=== PATIENT | female | born 1960 | race Caucasian/White ===

== ENCOUNTER → 2021-07-06 09:49 | Outpatient (CLI) | payer OTHER, SELFPAY ==
[2021-07-06 12:24] LABS: Hematocrit 44.4 % (37-47); Hemoglobin 14.7 g/dL (12.0-15.0); Mean Corp Hgb Conc 33.1 g/dL (32-36); Mean Corpuscular Hgb 31.2 pg (27.0-32.0); Mean Corpuscular Volume 94.3 fL (81-99); Mean Platelet Vol. 10.3 fl (6.2-12.0); Platelet Count 269 K/mm3 (150-450); RBC Distribution Width CV 13.1 % (11.6-14.6); RBC Distribution Width SD 45.7 fl (35.1-43.9); Red Blood Count 4.71 M/mm3 (4.2-5.4); White Blood Count 5.6 K/mm3 (4.4-11.0)
[2021-07-06 12:43] LABS: ALB/GLOB Ratio 1.1 RATIO (0.9-2.4); AST(SGOT) 14 U/L (15-37); Alanine Aminotransfer ALT/SGPT 21 U/L (13-56); Albumin, Serum 3.8 g/dL (3.2-5.0); Alkaline Phosphatase 81 U/L (45-117); Anion Gap 8 (5-15); BUN 13 mg/dL (7-18); BUN/Creat Ratio 21.4 RATIO (10-20); Calcium,Total 9.1 mg/dL (8.5-10.1); Chloride 104 mmol/L (98-107); Cholesterol 247 mg/dL (200); Creatinine, Serum 0.61 mg/dL (0.55-1.02); EST Glomerular Filtration Rate 106 mL/min (>60); Est Glom Filt Rate - Afr Amer 128 mL/min (>60); Globulin 3.4 g/dL (2.2-4.2); Glucose 91 mg/dL (74-106); High Density Lipoprotein 57 mg/dL; Potassium 3.8 mmol/L (3.5-5.1); Protein, Total 7.2 g/dL (6.4-8.2); Sodium Level 140 mmol/L (136-145); Triglycerides 180 mg/dL; Very Low Density Lipoprotein 36 mg/dL (5-40)
== END ==
PROVIDERS: PCP Family Medicine; Referring Provider Family Medicine; Visit Provider Family Medicine
DX: Z13.0 Encounter for screening for diseases of the blood and blood-forming organs and certain disorders involving the immune mechanism (principal); Z13.228 Encounter for screening for other metabolic disorders; Z13.220 Encounter for screening for lipoid disorders; Z20.822 Contact with and (suspected) exposure to COVID-19
CPT/HCPCS: 36415; 80053; 80061; 85027; 86769

== ENCOUNTER → 2021-07-13 12:44 | Outpatient (CLI) | payer OTHER, SELFPAY ==
--- NOTE | 2021-07-13 12:46 | BI_ITS ---
MAMMOGRAPHY - BILATERAL SCREENING REASON FOR EXAM: Female, 60 years old. Routine annual screening examination. PERTINENT HISTORY: Non-contributory. TECHNIQUE: Digital bilateral breast esvin (3D mammographic acquisition) in the CC and MLO projections. 2-D mediolateral oblique (MLO) and craniocaudad (CC) views of both breasts were obtained. CAD: Full Field Digital Mammography with Computer Added Detection was performed. COMPARISON: Comparison is made with prior outside examination dated 09/25/2019. FINDINGS: Breast Composition: There are scattered areas of fibroglandular density. There are no dominant masses or suspicious calcifications. No other significant abnormalities are identified. There has been no significant change since the prior study. BI/SCRN MAMM (CAD)W/ESVIN BILAT IMPRESSION: Stable bilateral screening mammogram. Yearly follow-up mammogram recommended. (A) ASSESSMENT CATEGORY: BIRADS Category 1: Negative. A letter regarding these results will be sent to the patient by the facility within 30 days. Approximately 10% of breast cancers are not detected by mammography. A normal mammogram should not delay biopsy of a clinically suspicious abnormality. [id number] Electronically Signed: Kem Wade MD at 14:32 EST , Service support ,
== END ==
PROVIDERS: PCP Family Medicine; Referring Provider Family Medicine; Visit Provider Family Medicine
DX: Z12.31 Encounter for screening mammogram for malignant neoplasm of breast (principal)
CPT/HCPCS: 77063; 77067

== ENCOUNTER → 2022-06-07 | Outpatient (CLI) | payer OTHER, SELFPAY ==
--- NOTE | 2022-06-07 12:09 | EKG12_ITS ---
Test Reason : PRE OP Blood Pressure : / mmHG Vent. Rate : 069 BPM Atrial Rate : 069 BPM P-R Int : 148 ms QRS Dur : 072 ms QT Int : 400 ms P-R-T Axes : 042 035 032 degrees QTc Int : 428 ms Normal sinus rhythm Normal ECG Confirmed by MILA AVILA, ALE ([id number]), legal editor JONATHAN GOFF ([id number]) on 06/08/2022 8:51:17 AM Referred By: Malika Sanchez Confirmed By:ALE ZARAGOZA MD
[2022-06-07 13:22] LABS: Absolute Lymphocyte Count 2.21 X10^3/uL (0.83-4.51); Absolute Neutrophil Count 4.3 X10^3/uL (2.0-7.7); Basophil# 0.04 X10^3/uL; Basophil% 0.6 % (0-1); Eosinophil# 0.11 X10^3/uL; Eosinophils% 1.5 % (0-5); Hematocrit 44.9 % (37-47); Hemoglobin 14.8 g/dL (12.0-15.0); Lymphocyte # 2.21 X10^3/ul (0.83-4.51); Lymphocyte % 30.6 % (19-41); Mean Corpuscular Hgb 31.2 pg (27.0-32.0); Mean Corpuscular Volume 94.5 fL (81-99); Mean Platelet Vol. 10.2 fl (6.2-12.0); Monocyte# 0.49 X10^3/uL; Monocyte% 6.8 % (0-10); NRBC Flagged by Analyzer 0 % (0-5); Neutrophil % 59.5 % (47-70); Platelet Count 297 K/mm3 (150-450); RBC Distribution Width CV 12.9 % (11.6-14.6); RBC Distribution Width SD 44.6 fl (35.1-43.9); Red Blood Count 4.75 M/mm3 (4.2-5.4); White Blood Count 7.2 K/mm3 (4.4-11.0)
[2022-06-07 14:33] LABS: Anion Gap 4 (5-15); BUN 14 mg/dL (7-18); BUN/Creat Ratio 13.6 RATIO (10-20); Calcium,Total 9.6 mg/dL (8.5-10.1); Chloride 104 mmol/L (98-107); Creatinine, Serum 1.03 mg/dL (0.55-1.02); EST Glomerular Filtration Rate 57 mL/min (>60); Est Glom Filt Rate - Afr Amer 70 mL/min (>60); Glucose 92 mg/dL (74-106); Potassium 4.1 mmol/L (3.5-5.1); Sodium Level 139 mmol/L (136-145)
== END | disposition home or self-care (01) ==
PROVIDERS: PCP Family Medicine; Referring Provider Physician Assistant Surgical; Visit Provider Physician Assistant Surgical
DX: Z01.818 Encounter for other preprocedural examination (principal); Z01.810 Encounter for preprocedural cardiovascular examination
CPT/HCPCS: 36415; 80048; 85025; 93005

== ENCOUNTER → 2022-06-16 | Outpatient (CLI) | payer OTHER, SELFPAY ==
--- NOTE | 2022-06-15 08:10 | LIP_PTH ---
PATIENT: DARREN THOMPSON LOC: [facility] U#:[id number] AGE/SX: 61/F ROOM: RE06/16/[address]: Dr. Robert Jurado DO : 1960 BED: DIS: 06/16/2022 SPEC #: [id number] RECD: 06/16/22 14:14 STATUS: BAKARI REMj #: [id number] NORIS: 06/15/22 08:[address]: Robert Jurado DEPT: SURGICAL PATHOLOGY RECD BY: America Hernandez ENTERED: 06/17/22 07:58 SP TYPE: LIPOMA OTHR DR: Dr. Lauren Sheehan, DO [facility] Tissues: Soft tissues, NOS Procedures: Surgery Specimen Level III HEADER OPERATION: Excision right dorsal wrist, lipoma PRE-OP DIAGNOSIS: Ganglion cyst, right wrist POST-OP DIAGNOSIS: Right dorsal wrist lipoma TISSUE SUBMITTED: Right dorsal wrist lipoma MICROSCOPIC DIAGNOSIS Right dorsal wrist lipoma, biopsy: Mature adipose tissue, consistent with lipoma. /ANUJA 06/18/22 MICROSCOPIC DESCRIPTION Slides are reviewed. GROSS DESCRIPTION Received in fixative is one container labeled with the patient's name and designated right dorsal wrist lipoma. The specimen consists of a piece of adipose tissue measuring 3 x 2.5 x 0.6 cm. Sections reveal yellow adipose cut surface with areas of hemorrhage, necrosis or cystic degeneration. Associate Vice President sections are submitted in one cassette. /ANUJA:eder 06/17/2022 TC:1 CPT:28160
== END | disposition home or self-care (01) ==
LOC: LABSPEC 15:34
PROVIDERS: PCP Family Medicine; Visit Provider Student in an Organized Health Care Education/Training Program
DX: M67.431 Ganglion, right wrist (principal)
CPT/HCPCS: 88304

== ENCOUNTER → 2022-10-07 | Outpatient (CLI) | payer OTHER, SELFPAY ==
--- NOTE | 2022-10-07 15:50 | BI_ITS ---
MAMMOGRAPHY - BILATERAL SCREENING REASON FOR EXAM: Female, 61 years old. Routine annual screening examination. PERTINENT HISTORY: Non-contributory. TECHNIQUE: Digital bilateral breast esvin (3D mammographic acquisition) in the CC and MLO projections. 2-D mediolateral oblique (MLO) and craniocaudad (CC) views of both breasts were obtained. CAD: Full Field Digital Mammography with Computer Added Detection was performed. COMPARISON: Comparison is made with prior study dated July 13, 2021 and August 27, 2010. FINDINGS: Breast Composition: There are scattered areas of fibroglandular density. There are no dominant masses or suspicious calcifications. Stable small benign-appearing bilateral axillary lymph nodes. No other significant abnormalities are identified. There has been no significant change since the prior study. BI/SCRN MAMM (CAD)W/ESVIN BILAT IMPRESSION: Stable bilateral screening mammogram. Yearly follow-up mammogram recommended. (A) ASSESSMENT CATEGORY: BIRADS Category 2: Benign. A letter regarding these results will be sent to the patient by the facility within 30 days. Approximately 10% of breast cancers are not detected by mammography. A normal mammogram should not delay biopsy of a clinically suspicious abnormality. [id number] Electronically Signed: Kem Wade MD at 7:56 EST ,
--- NOTE | 2022-10-07 15:55 | BD_ITS ---
STUDY: DUAL ENERGY X-RAY ABSORPTIOMETRY / DXA REASON FOR EXAM: Female, 61 years old. M810 TECHNIQUE: Bone Mineral Density (BMD) measurements of lumbar spine and bilateral hips were obtained. COMPARISON: None. FINDINGS: Lumbar Spine (L1-L4): g/cm2 (0.711) / T-score (-2.8) / Z-score (-1.1) Findings are suggestive of osteoporosis with a high fracture risk. Left Femur Total: g/cm2 (0.788) / T-score (-1.3) / Z-score (-0.1) Left Femoral Neck: g/cm2 (0.635) / T-score (-1.9) / Z-score (-0.5) Right Femur Total: g/cm2 (0.817) / T-score (-1.0) / Z-score (0.1) Right Femoral Neck: g/cm2 (0.669) / T-score (-1.6) / Z-score (-0.2) BD/Dexa Bone Density Study IMPRESSION: The patient is considered osteoporotic as outlined below according to World [employer] Organization (WHO) criteria with a high fracture risk. Reference Information: The T-score is the number of standard deviations above or below the standard which is normal for young adults at their peak bone mineral density. The World Health Organization (WHO) interprets the T-scores as follows: Above -1 Normal bone density Between -1 and -2.5 Osteopenia Equal to / or below -2.5 Osteoporosis As a practical clinical guideline, osteopenia may be graded as follows: Mild -1 through -1.5 Moderate -1.6 through -2.0 Severe -2.1 through -2.4 The Z-score is the number of standard deviations above or below age-matched controls. A Z-score of less than -1.5 would be considered abnormal. References: 1. NIH Osteoporosis and Related Bone Diseases www osteo.org 2. International Society for Clinical Densitometry www iscd.org 3. National Osteoporosis Foundation www nof.org Electronically Signed: Kem Wade MD at 14:19 EST ,
== END | disposition home or self-care (01) ==
PROVIDERS: PCP Family Medicine; Referring Provider Family Medicine; Visit Provider Family Medicine
DX: Z12.31 Encounter for screening mammogram for malignant neoplasm of breast (principal); M81.0 Age-related osteoporosis without current pathological fracture
CPT/HCPCS: 77063; 77067; 77080

== ENCOUNTER → 2023-09-09 | Outpatient (CLI) | payer OTHER, SELFPAY ==
[2023-09-09 14:34] LABS: Hematocrit 44.8 % (37-47); Hemoglobin 14.5 g/dL (12.0-15.0); Mean Corp Hgb Conc 32.4 g/dL (32-36); Mean Corpuscular Hgb 30.9 pg (27.0-32.0); Mean Corpuscular Volume 95.5 fL (81-99); Mean Platelet Vol. 10.2 fl (6.2-12.0); Platelet Count 276 K/mm3 (150-450); RBC Distribution Width CV 13.5 % (11.6-14.6); RBC Distribution Width SD 47.2 fl (35.1-43.9); Red Blood Count 4.69 M/mm3 (4.2-5.4); White Blood Count 7.3 K/mm3 (4.4-11.0)
[2023-09-09 15:33] LABS: ALB/GLOB Ratio 1.2 RATIO (0.9-2.4); AST(SGOT) 20 U/L (15-37); Alanine Aminotransfer ALT/SGPT 26 U/L (13-56); Alkaline Phosphatase 91 U/L (45-117); Anion Gap 6 (5-15); BUN 14 mg/dL (7-18); BUN/Creat Ratio 17.4 RATIO (10-20); Calcium,Total 9.4 mg/dL (8.5-10.1); Chloride 105 mmol/L (98-107); EST Glomerular Filtration Rate 76 mL/min (>60); Est Glom Filt Rate - Afr Amer 92 mL/min (>60); Globulin 3.3 g/dL (2.2-4.2); Glucose 97 mg/dL (74-106); Magnesium 2.5 mg/dL (1.6-2.6); Protein, Total 7.3 g/dL (6.4-8.2); Sodium Level 141 mmol/L (136-145)
== END | disposition home or self-care (01) ==
LOC: LAB 13:54
PROVIDERS: PCP Nurse Practitioner Family; Referring Provider Nurse Practitioner Family; Visit Provider Nurse Practitioner Family
DX: Z00.00 Encounter for general adult medical examination without abnormal findings (principal)
CPT/HCPCS: 36415; 80053; 83735; 85027

== ENCOUNTER → 2023-09-13 | Outpatient (CLI) | payer OTHER, SELFPAY ==
--- NOTE | 2023-09-13 13:04 | EKG12_ITS ---
Test Reason : ROUTINE Blood Pressure : / mmHG Vent. Rate : 066 BPM Atrial Rate : 066 BPM P-R Int : 154 ms QRS Dur : 074 ms QT Int : 410 ms P-R-T Axes : 047 040 032 degrees QTc Int : 429 ms Normal sinus rhythm Normal ECG Confirmed by Sang Shaw ([id number]), editor managing director JONATHAN GOFF ([id number]) on 09/14/2023 8:08:05 AM Referred By: Angeline Gar Confirmed By:Sang Shaw
--- OUTSIDE RECORDS SUMMARY | 2023-09-13 13:05 | XMS RPT_ITS | CCD ---
Author Name Unknown Address [address] [place] [address] Organization [facility] Care Team Providers Care Cessation Systems Outreach Specialist Name Role Phone Unavailable Primary Care Provider UnavailJOSE ANGEL Torres Referring Unavailable JOSE ANGEL LOTT DO Attending Unavailable JOSE ANGEL LOTT DO Primary Care Unavailable JOSE ANGEL LOTT DO Admitting Unavailable CHELSIE CORDOBA RESTAURANT HOST Admitting Unavailable CHELSIE CORDOBA NP Attending Unavailable CHELSIE CORDOBA RESTAURANT HOST Primary Care Unavailable Medications Current Medications Medication Drug Class(es) Dates Sig (Normalized) Sig (Original) doxycycline monohydrate 100 mg oral tablet (1 source) Tetracycline-clas s Drug Start: 08-15-2022 End: 08-20-2022 take 1 tablet by mouth twice daily doxycycline monohydrate 100 mg tablet Take 1 tablet by mouth twice daily for 5 days. 10 tablet 0 08/15/2022 08/20/2022 Active Completed/Discontinued Medications Medication Drug Class(es) Dates Sig (Normalized) Sig (Original) [id number] 200 actuat albuterol 0.09 mg/actuat metered dose inhaler (1 source) beta2-Adrenergic Agonist Start: 07-16-2023 take 2 puff(s) by inhalation every six hours as needed albuterol HFA (PROAIR HFA) 90 mcg/actuation inhaler Inhale 2 Puffs as instructed every 6 hours as needed. 1 Each 0 07/16/2023 Active Problems Active Problems Problem Classification Problem Date Documented Date Episodic/Chronic Disorders of lipid metabolism (3 sources) Hypercholesterolemia; Translations: [Pure hypercholesterolemia, unspecified] Onset: 06-01-2018 06-01-2018 Chronic Esophageal disorders (3 sources) Gastroesophageal reflux disease; Translations: [Gastro-esophageal reflux disease without esophagitis] Onset: 02-09-2017 02-09-2017 Chronic Osteoporosis (3 sources) Osteoporosis; Translations: [Age-related osteoporosis without current pathological fracture] Onset: 02-13-2018 02-13-2018 Chronic Other screening for suspected conditions (not mental disorders or infectious disease) (2 sources) Encounter for other screening for malignant neoplasm of breast; Translations: [Encounter for screening for osteoporosis] Onset: 09-01-2023 Episodic Other upper respiratory infections (1 source) Bacterial sinusitis; Translations: [Chronic sinusitis, unspecified] Chronic Other upper respiratory infections (2 sources) Acute upper respiratory infection; Translations: [Acute upper respiratory infection, unspecified] Episodic Viral infection (1 source) Disease caused by 2019-nCoV; Translations: [COVID-19] 07-16-2023 Episodic Past or Other Problems Problem Classification Problem Date Documented Da te Episodic/Chronic Other bone disease and musculoskeletal deformities (3 sources) Osteopenia; Translations: [Other specified disorders of bone density and structure, unspecified site] Onset: 01-27-2015 07-27-2021 Episodic Results Test Name Value Interpretation Reference Range Facil ity Vital Signs Date Time Vital Sign Value Performing Clinician Shiraz trotter 07-16-2023 11:53-0500 Body temperature 97.5 [degF] Larisa Athy PA-C Work Phone: [facility] 07-16-2023 11:53-0500 Body weight 73.94 kg Larisa Athy PA-C Work Phone: [facility] 07-16-2023 11:53-0500 Diastolic blood pressure 90 mm[Hg] Larisa Athy PA-C Work Phone: [facility] 07-16-2023 11:53-0500 Heart rate 67 /min Larisa Athy PA-C Work Phone: [facility] 07-16-2023 11:53-0500 Respiratory rate 16 /min Larisa Athy PA-C Work Phone: [facility] 07-16-2023 11:53-0500 SaO2% (BldA) [Mass fraction] 98 % Larisa Athy PA-C Work Phone: [facility] 07-16-2023 11:53-0500 Systolic blood pressure 136 mm[Hg] Larisa Kuo PA-C Work Phone: [facility] 08-15-2022 13:31-0500 Body temperature 97.9 [degF] [facility] TRAIN[facility].OPEN SOURCE DEVELOPER Work Phone: [facility] 08-15-2022 13:31-0500 Body weight 77.02 [facility] TRAIN[facility].OPEN SOURCE DEVELOPER Work Phone: [facility] 08-15-2022 13:31-0500 Diastolic blood pressure 88 mm[Hg] [facility]IN[facility].OPEN SOURCE DEVELOPER Work Phone: [facility] 08-15-2022 13:31-0500 Heart rate 78 /min [facility] TRAINING.OPEN SOURCE DEVELOPER Work Phone: [facility] 08-15-2022 13:31-0500 Respiratory rate 18 /min [facility] TRAINING.OPEN SOURCE DEVELOPER Work Phone: [facility] 08-15-2022 13:31-0500 SaO2% (BldA) [Mass fraction] 99 % [facility] RN TRAINING.OPEN SOURCE DEVELOPER Work Phone: [facility] 08-15-2022 13:31-0500 Systolic blood pressure 140 mm[Hg] [facility] TRAINING.OPEN SOURCE DEVELOPER Work Phone: [facility] 08-11-2022 11:43-0500 Body temperature 98.4 [degF] Krislyn Aberegg PA Work Phone: [facility] 08-11-2022 11:43-0500 Body weight 76.75 kg Krislyn Aberegg PA Work Phone: [facility] 08-11-2022 11:43-0500 Diastolic blood pressure 72 mm[Hg] Krislyn Aberegg PA Work Phone: [facility] 08-11-2022 11:43-0500 Heart rate 74 /min Krislyn Aberegg PA Work Phone: [facility] 01-11-2023 11:43-0500 Respiratory rate 16 /min Shama PETE Work Phone: [facility] 08-11-2022 11:43-0500 SaO2% (BldA) [Mass fraction] 96 % Shama PETE Work Phone: [facility] 08-11-2022 11:43-0500 Systolic blood pressure 128 mm[Hg] Shama PETE Work Phone: [facility] Encounters Encounter Date Encounter Type Care Provider Facility Start: 09-08-2023 ambulatory CHELSIE RESTAURANT HOST [facility] Start: 09-08-2023 Encounter for genera l adult medical examination without abnormal findings CHELSIE RESTAURANT HOST [facility] Start: 09-01-2023 End: 09-01-2023 ambulatory [facility] Start: 09-01-2023 End: 09-01-2023 Encounter for general adult medical examination without abnormal findings [facility] Start: 07-16-2023 End: 07-16-2023 ambulatory [facility] Facility:[facility] Start: 07-16-2023 End: 07-16-2023 Patient encounter procedure Larisa Kuo PA-C Work Phone: [facility] Procedures Date Procedure Procedure Detail Performing Clinician Start: 09-24-2022 Lipid 1996 panel - S presley or Plasma Larisa Kuo PA-C Work Phone: Start: 08-11-2022 STREP A MOLECULAR (POC) [facility] Provider Start: 09-25-2019 Mammography Shama PETE Work Phone: Plan of Treatment Date Care Activity Detail Author Start: 07-09-2030 Urine microalbumin profile [facility] Start: 09-24-2027 Lipid panel Lipid Screening [facility] Start: 09-24-2025 Diabetes Screening Diabetes Screening [facility] Start: 10-02-2024 LIPID SCREEN LIPID SCREEN [facility] Start: 04-01-2023 Influenza vaccination Influenza Vaccine (#1) [facility] Start: 08-01-2022 DEPRESSION ASSESSMENT DEPRESSION ASSESSMENT [facility] Start: 04-01-2022 Influenza vaccination INFLUENZA (#1) [facility] Start: 09-25-2020 Mammography MAMMOGRAM [facility] Start: 09-25-2020 Screening for malignant neoplasm of breast Mammogram Screening [facility] Start: 03-19-2020 DIABETES SCREEN DIABETES SCREEN [facility] Start: 05-29-2019 COLORECTAL CANCER SCREENING COLORECTAL CANCER SCREENING [facility] Start: 05-29-2019 FECAL OCCULT BLOOD FECAL OCCULT BLOOD [facility] Start: 05-29-2019 Screening for malignant neoplasm of colon [facility] Start: 2018 RSV Vaccine (1 - 1-dose 60+ series) RSV Vaccine (1 - 1-dose 60+ series) [facility] Start: 2008 SHINGRIX VACCINE (1 of 2) SHINGRIX VACCINE (1 of 2) [facility] Start: 12-31-2003 COLOGUARD (FIT-DNA) COLOGUARD (FIT-DNA) [facility] Start: 12-31-2003 Colonoscopy COLONOSCOPY [facility] Start: 12-31-[address] COLONOGRAPHY [facility] Start: 12-31-2003 Screening for malignant neoplasm of colon [facility] Start: 12-31-2003 SIGMOIDOSCOPY SIGMOIDOSCOPY [facility] Start: 1976 HEPATITIS C SCREENING HEPATITIS C SCREENING [facility] Start: 1976 Hepatitis C screening Hepatitis C Screening [facility] Start: 1976 HIV SCREENING HIV SCREENING [facility] Start: 1976 HIV screening HIV Screening [facility] Start: 07-01-1959 COVID-19 VACCINE (#1) COVID-19 VACCINE (#1) [facility] End: 08-14-2024 Radiologic exam chest 2 views XR CHEST 2V FRONTAL/LAT Radiology STAT COVID-19 1 Occurrences starting 07/16/2023 until 08/14/2024 [facility] Work Phone: Immunizations Immunization Date Immunization Notes Care Provider Galo moreno 07-09-2020 tetanus toxoid, redu chayo diphtheria toxoid, and acellular pertussis vaccine, adsorbed Krislyn Samantha PETE Work Phone: [facility] 08-04-2016 tetanus toxoid, redu chayo diphtheria toxoid, and acellular pertussis vaccine, adsorbed Krislyn Aberegg [place] Work Phone: [facility] Work Phone: Payers Date Payer Category Payer Unknown [id number] 2021 Unknown [id number] 1960 Unknown [id number] 1960 Unknown [id number] Social History Date Type Detail Facility Start: 08-11-2022 Tobacco smoking stat [facility] Ex-smoker [facility] Work Phone: End: 11-29-1993 History of tobacco use Current smoker [facility] Work Phone: End: 11-29-1993 History of tobacco use Cigarette Smoker [facility] Work Phone: Start: 07-07-2020 End: 08-11-2022 Cigarettes smoked current (pack per day) - Reported 1 [facility] Start: 08-11-2022 Tobacco use and exposure Smokeless tobacco non-user [facility] Work Phone: Start: 08-11-2022 End: 07-16-2023 Alcohol intake Current non-drinker of alcohol (finding) [facility] Start: 08-11-2022 Tobacco Comment Quit in November 1993 [facility] Start: 1960 Sex Assigned At Not on file C [facility] Start: 07-07-2020 End: 07-16-2023 Tobacco use panel [facility] Adult Depression Screening Assessment 0 [facility] Progress note 07-16-2023 Note Date & Type Note Facility 07-16-2023 Note HNO ID: [id number] Author: Larisa Kuo PA-C Service: ? Author Type: Physician Statistical Programmer Type: Progress Notes Filed: 07/16/2023 2:18 PM Note Text: This note was created using [employer]. Subjective Mariola Dc is a 62 year old female. HPI Patient presents with a chief complaint of cough shortness of breath nasal congestion. She was positive COVID last week. She had symptoms for about 12 days. She states she has had some dizziness off and on. No chest pain. She denies sinus pressure or pain. No vomiting but has had nausea. She has lost her smell and taste. No diarrhea. She has never had COVID previously and is not vaccinated. Review of Systems Constitutional: Positive for fatigue. Negative for fever. HENT: Positive for congestion and rhinorrhea. Negative for ear pain, sinus pressure and sinus pain. Respiratory: Positive for cough and shortness of breath. Negative for chest tightness and wheezing. Cardiovascular: Negative for chest pain. Gastrointestinal: Positive for nausea. Negative for abdominal pain and vomiting. Genitourinary: Negative. Musculoskeletal: Negative. Skin: Negative. Neurological: Positive for dizziness. All other systems reviewed and are negative. No past medical history on file. Current Outpatient Medications Medication Sig Dispense Refill ondansetron orally disintegrating (ZOFRAN ODT) 4 mg disintegrating tablet Take 1 tablet by mouth every 8 hours as needed. 12 tablet 0 albuterol HFA (PROAIR HFA) 90 mcg/actuation inhaler Inhale 2 Puffs as instructed every 6 hours as needed. 1 Each 0 loratadine (CLARITIN) 10 mg tablet Take 1 tablet by mouth once daily. (Patient not taking: Reported on 07/16/2023) 30 tablet 11 triamcinolone acetonide (KENALOG) 0.1 % cream Apply 1 application to affected area three times daily. Apply sparingly to area for rash/itching. (Patient not taking: Reported on 08/11/2022) 80 g 0 No current facility-administered medications for this visit. PAST SURGICAL HISTORY Procedure Laterality Date PAST SURGICAL HISTORY OF 2005 Partial Hysterctomy--cervix gone, but ovaries still there [place] ECTOPIC W/O SALPINGAND/OOPHORECTOMY 1993 Ectopic FAMILY HISTORY Problem Relation Age of Onset Cancer Father of Lung Cancer 1998; smoker Coronary Artery Disease Father [place] at age 56 None Mother Heart Maternal Grandmother CHF Lipids Maternal Grandmother Cancer Paternal Grandmother of Lung cancer; smoker Social History Tobacco Use Smoking status: Former Packs/day: 1.00 Years: 15.00 Additional pack years: 0.00 Total pack years: 15.00 Types: Cigarettes Quit date: 11/29/1993 Years since quittin.6 Smokeless tobacco: Never Tobacco comments: Quit in November 1993 Substance Use Topics Alcohol use: No Drug use: No Objective BP 136/90 Pulse 67 Temp 36.4 ?C (97.5 ?F) Resp 16 Wt 73.9 kg (163 lb) SpO2 98% BMI 26.71 kg/m? Physical Exam Vitals reviewed. Constitutional: Appearance: Normal appearance. HENT: Head: Normocephalic and atraumatic. Right Ear: Tympanic membrane, ear canal and external ear normal. Left Ear: Tympanic membrane, ear canal and external ear normal. Nose: Nose normal. Mouth/Throat: Mouth: Mucous membranes are moist. Pharynx: Oropharynx is clear. Cardiovascular: Rate and Rhythm: Normal rate and regular rhythm. Heart sounds: Normal heart sounds. Pulmonary: Effort: Pulmonary effort is normal. Breath sounds: Normal breath sounds. Musculoskeletal: Cervical back: Neck supple. Skin: General: Skin is warm and dry. Neurological: Mental Status: She is alert. Assessment and Plan ASSESSMENT/PLAN: 1. COVID-19 - ICD9: 079.89, ICD10: U07.1 Patient lungs are clear on exam, vital signs are stable. I did write Zofran for nausea and albuterol if she was feeling short of breath. X-ray is closed for the day today. Did order an x-ray for Tuesday. Discussed red flag symptoms to be seen in the ER. Discussed course of COVID and potential to develop symptoms even past the acute phase. Recommended follow-up with PCP if symptoms are not improving and instructed patient to go to the [facility] to establish with PCP in [place]. - XR CHEST 2V FRONTAL/LAT Larisa Kuo PA-C [facility] History of Present illness Narrative 07-16-2023 Larisa Kuo PA-C - 07/16/2023 1:29 PM EST Note Date & Type Note Facility 07-16-2023 History of Presen t illness Narrative This note was created using [employer]. Subjective Mariola Dc is a 62 year old female. HPI Patient presents with a chief complaint of cough shortness of breath nasal congestion. She was positive COVID last week. She had symptoms for about 12 days. She states she has had some dizziness off and on. No chest pain. She denies sinus pressure or pain. No vomiting but has had nausea. She has lost her smell and taste. No diarrhea. She has never had COVID previously and is not vaccinated. Review of Systems Constitutional: Positive for fatigue. Negative for fever. HENT: Positive for congestion and rhinorrhea. Negative for ear pain, sinus pressure and sinus pain. Respiratory: Positive for cough and shortness of breath. Negative for chest tightness and wheezing. Cardiovascular: Negative for chest pain. Gastrointestinal: Positive for nausea. Negative for abdominal pain and vomiting. Genitourinary: Negative. Musculoskeletal: Negative. Skin: Negative. Neurological: Positive for dizziness. All other systems reviewed and are negative. No past medical history on file. Current Outpatient Medications Medication Sig Dispense Refill ondansetron orally disintegrating (ZOFRAN ODT) 4 mg disintegrating tablet Take 1 tablet by mouth every 8 hours as needed. 12 tablet 0 albuterol HFA (PROAIR HFA) 90 mcg/actuation inhaler Inhale 2 Puffs as instructed every 6 hours as needed. 1 Each 0 loratadine (CLARITIN) 10 mg tablet Take 1 tablet by mouth once daily. (Patient not taking: Reported on 07/16/2023) 30 tablet 11 triamcinolone acetonide (KENALOG) 0.1 % cream Apply 1 application to affected area three times daily. Apply sparingly to area for rash/itching. (Patient not taking: Reported on 08/11/2022) 80 g 0 No current facility-administered medications for this visit. PAST SURGICAL HISTORY Procedure Laterality Date PAST SURGICAL HISTORY OF 2005 Partial Hysterctomy--cervix gone, but ovaries still there [place] ECTOPIC W/O SALPING&/OOPHORECTOMY 1993 Ectopic FAMILY HISTORY Problem Relation Age of Onset Cancer Father of Lung Cancer 1998; smoker Coronary Artery Disease Father [place] at age 56 None Mother Heart Maternal Grandmother CHF Lipids Maternal Grandmother Cancer Paternal Grandmother of Lung cancer; smoker Social History Tobacco Use Smoking status: Former Packs/day: 1.00 Years: 15.00 Additional pack years: 0.00 Total pack years: 15.00 Types: Cigarettes Quit date: 11/29/1993 Years since quittin.6 Smokeless tobacco: Never Tobacco comments: Quit in November 1993 Substance Use Topics Alcohol use: No Drug use: No Objective BP 136/90 Pulse 67 Temp 36.4 C (97.5 F) Resp 16 Wt 73.9 kg (163 lb) SpO2 98% BMI 26.71 kg/m Physical Exam Vitals reviewed. Constitutional: Appearance: Normal appearance. HENT: Head: Normocephalic and atraumatic. Right Ear: Tympanic membrane, ear canal and external ear normal. Left Ear: Tympanic membrane, ear canal and external ear normal. Nose: Nose normal. Mouth/Throat: Mouth: Mucous membranes are moist. Pharynx: Oropharynx is clear. Cardiovascular: Rate and Rhythm: Normal rate and regular rhythm. Heart sounds: Normal heart sounds. Pulmonary: Effort: Pulmonary effort is normal. Breath sounds: Normal breath sounds. Musculoskeletal: Cervical back: Neck supple. Skin: General: Skin is warm and dry. Neurological: Mental Status: She is alert. Assessment and Plan ASSESSMENT/PLAN: 1. COVID-19 - ICD9: 079.89, ICD10: U07.1 Patient lungs are clear on exam, vital signs are stable. I did write Zofran for nausea and albuterol if she was feeling short of breath. X-ray is closed for the day today. Did order an x-ray for Tuesday. Discussed red flag symptoms to be seen in the ER. Discussed course of COVID and potential to develop symptoms even past the acute phase. Recommended follow-up with PCP if symptoms are not improving and instructed patient to go to the [facility] to establish with PCP in [place]. - XR CHEST 2V FRONTAL/LAT Larisa Kuo PA-C documented in this encounter [facility] Progress note 08-15-2022 Note Date & Type Note Facility 08-15-2022 Note HNO ID: [id number] Author: Rajan Rosario APRN.OPEN SOURCE DEVELOPER Service: ? Author Type: Nurse Practitioner Type: Progress Notes Filed: 08/15/2022 2:03 PM Note Text: Subjective HPI Nontoxic-appearing female presents urgent care chief plaint sinus pressure headache. Duration of symptom 1 week. Associated symptoms sinus pressure and headache. Does have a transient sore throat. States was seen here on Tuesday. Diagnosed with viral URI. Did start Claritin and Flonase. Has not helped much. Presents today worsening sinus pressure. States that she has unilateral pressure over her left side. Denies any significant discomfort currently. No known sick contacts. Denies any fever body aches chills productive cough chest pain shortness of breath pleuritic pain hemoptysis nausea vomiting abdominal pain change in bowel or bladder habits. Past medical history prescription medication use and allergies reviewed. .Patient presents with: Head Congestion: ST, [place]RI[place], sinus drainage x1 week Seen 08/11 for same History reviewed. No pertinent past medical history. PAST SURGICAL HISTORY Procedure Laterality Date PAST SURGICAL HISTORY OF 2005 Partial Hysterctomy--cervix gone, but ovaries still there TX ECTOPIC W/O SALPINGAND/OOPHORECTOMY 1993 Ectopic ALLERGIES Patient has no known allergies. MEDICATIONS doxycycline monohydrate 100 mg tablet Take 1 tablet by mouth twice daily for 5 days. loratadine (CLARITIN) 10 mg tablet Take 1 tablet by mouth once daily. triamcinolone acetonide (KENALOG) 0.1 % cream Apply 1 application to affected area three times daily. Apply sparingly to area for rash/itching. (Patient not taking: Reported on 08/11/2022) FAMILY HISTORY Problem Relation Age of Onset Cancer Father of Lung Cancer 1998; smoker Coronary Artery Disease Father [place] at age 56 None Mother Heart Maternal Grandmother CHF Lipids Maternal Grandmother Cancer Paternal Grandmother of Lung cancer; smoker Social History Tobacco Use Smoking status: Former Packs/day: 1.00 Years: 15.00 Pack years: 15.00 Types: Cigarettes Quit date: 11/29/1993 Years since quittin.7 Smokeless tobacco: Never Tobacco comments: Quit in November 1993 Substance Use Topics Alcohol use: No Drug use: No BP 140/88 Pulse 78 Temp 36.6 ?C (97.9 ?F) Resp 18 Wt 77 kg (169 lb 12.8 oz) SpO2 99% BMI 27.83 kg/m? Review of Systems Constitutional: Negative for chills, fever and malaise/fatigue. HENT: Positive for congestion, sinus pain and sore throat. Negative for ear discharge and ear pain. Eyes: Negative for blurred vision, pain, discharge and redness. Respiratory: Negative for cough, hemoptysis, sputum production, shortness of breath, wheezing and stridor. Cardiovascular: Negative for chest pain. Gastrointestinal: Negative for abdominal pain, diarrhea, nausea and vomiting. Musculoskeletal: Negative for myalgias. Skin: Negative for itching and rash. Neurological: Positive for headaches. Negative for dizziness. Objective Physical Exam Constitutional: General: She is not in acute distress. Appearance: She is not diaphoretic. HENT: Head: Normocephalic. Jaw: No trismus or tenderness. Right Ear: Tympanic membrane, ear canal and external ear normal. Left Ear: Tympanic membrane, ear canal and external ear normal. Nose: Right Sinus: No maxillary sinus tenderness or frontal sinus tenderness. Left Sinus: Maxillary sinus tenderness and frontal sinus tenderness present. Mouth/Throat: Lips: [place]. Mouth: Mucous membranes are moist. Pharynx: Oropharynx is clear. Uvula midline. No pharyngeal swelling, oropharyngeal exudate, posterior oropharyngeal erythema or uvula swelling. Eyes: Conjunctiva/sclera: Conjunctivae normal. Pupils: Pupils are equal, round, and reactive to light. Cardiovascular: Rate and Rhythm: Normal rate and regular rhythm. Heart sounds: Normal heart sounds. Pulmonary: Effort: Pulmonary effort is normal. No tachypnea, accessory muscle usage or respiratory distress. Breath sounds: Normal breath sounds. No stridor. No wheezing, rhonchi or rales. Abdominal: Palpations: Abdomen is soft. Tenderness: There is no abdominal tenderness. Musculoskeletal: Cervical back: Normal range of motion and neck supple. No rigidity or tenderness. Lymphadenopathy: Cervical: No cervical adenopathy. Skin: General: Skin is warm and dry. Neurological: Mental Status: She is alert and oriented to person, place, and time. ASSESSMENT/PLAN: 1. Bacterial sinusitis - ICD9: 473.9, 041.9, ICD10: J32.9, B96.89 Patient diagnosed with bacterial sinusitis. Day 7 of symptoms. We discussed this still could be viral however this is patient's second visit. Safety net antibiotic sent to pharmacy. We will try supportive therapies over the next 48 hours. If symptoms or not improving will start doxycycline. Follow-up with PCP 3 to 5 days. Patient was educated o (more content not included)... [facility] History of Present illness Narrative 08-15-2022 Rajna Rosario APRN.[facility] - 08/15/2022 1:44 PM EST Note Date & Type Note Facility 08-15-2022 History of Presen t illness Narrative Subjective HPI Nontoxic-appearing female presents urgent care chief plaint sinus pressure headache. Duration of symptom 1 week. Associated symptoms sinus pressure and headache. Does have a transient sore throat. States was seen here on Tuesday. Diagnosed with viral URI. Did start Claritin and Flonase. Has not helped much. Presents today worsening sinus pressure. States that she has unilateral pressure over her left side. Denies any significant discomfort currently. No known sick contacts. Denies any fever body aches chills productive cough chest pain shortness of breath pleuritic pain hemoptysis nausea vomiting abdominal pain change in bowel or bladder habits. Past medical history prescription medication use and allergies reviewed. .Patient presents with: Head Congestion: ST, ENRIQUEZ, sinus drainage x1 week Seen 08/11 for same History reviewed. No pertinent past medical history. PAST SURGICAL HISTORY Procedure Laterality Date PAST SURGICAL HISTORY OF 2005 Partial Hysterctomy--cervix gone, but ovaries still there [place] ECTOPIC W/O SALPING&/OOPHORECTOMY 1993 Ectopic ALLERGIES Patient has no known allergies. MEDICATIONS doxycycline monohydrate 100 mg tablet Take 1 tablet by mouth twice daily for 5 days. loratadine (CLARITIN) 10 mg tablet Take 1 tablet by mouth once daily. triamcinolone acetonide (KENALOG) 0.1 % cream Apply 1 application to affected area three times daily. Apply sparingly to area for rash/itching. (Patient not taking: Reported on 08/11/2022) FAMILY HISTORY Problem Relation Age of Onset Cancer Father of Lung Cancer 1998; smoker Coronary Artery Disease Father [place] at age 56 None Mother Heart Maternal Grandmother CHF Lipids Maternal Grandmother Cancer Paternal Grandmother of Lung cancer; smoker Social History Tobacco Use Smoking status: Former Packs/day: 1.00 Years: 15.00 Pack years: 15.00 Types: Cigarettes Quit date: 11/29/1993 Years since quittin.7 Smokeless tobacco: Never Tobacco comments: Quit in November 1993 Substance Use Topics Alcohol use: No Drug use: No BP 140/88 Pulse 78 Temp 36.6 C (97.9 F) Resp 18 Wt 77 kg (169 lb 12.8 oz) SpO2 99% BMI 27.83 kg/m Review of Systems Constitutional: Negative for chills, fever and malaise/fatigue. HENT: Positive for congestion, sinus pain and sore throat. Negative for ear discharge and ear pain. Eyes: Negative for blurred vision, pain, discharge and redness. Respiratory: Negative for cough, hemoptysis, sputum production, shortness of breath, wheezing and stridor. Cardiovascular: Negative for chest pain. Gastrointestinal: Negative for abdominal pain, diarrhea, nausea and vomiting. Musculoskeletal: Negative for myalgias. Skin: Negative for itching and rash. Neurological: Positive for headaches. Negative for dizziness. Objective Physical Exam Constitutional: General: She is not in acute distress. Appearance: She is not diaphoretic. HENT: Head: Normocephalic. Jaw: No trismus or tenderness. Right Ear: Tympanic membrane, ear canal and external ear normal. Left Ear: Tympanic membrane, ear canal and external ear normal. Nose: Right Sinus: No maxillary sinus tenderness or frontal sinus tenderness. Left Sinus: Maxillary sinus tenderness and frontal sinus tenderness present. Mouth/Throat: Lips: [place]. Mouth: Mucous membranes are moist. Pharynx: Oropharynx is clear. Uvula midline. No pharyngeal swelling, oropharyngeal exudate, posterior oropharyngeal erythema or uvula swelling. Eyes: Conjunctiva/sclera: Conjunctivae normal. Pupils: Pupils are equal, round, and reactive to light. Cardiovascular: Rate and Rhythm: Normal rate and regular rhythm. Heart sounds: Normal heart sounds. Pulmonary: Effort: Pulmonary effort is normal. No tachypnea, accessory muscle usage or respiratory distress. Breath sounds: Normal breath sounds. No stridor. No wheezing, rhonchi or rales. Abdominal: Palpations: Abdomen is soft. Tenderness: There is no abdominal tenderness. Musculoskeletal: Cervical back: Normal range of motion and neck supple. No rigidity or tenderness. Lymphadenopathy: Cervical: No cervical adenopathy. Skin: General: Skin is warm and dry. Neurological: Mental Status: She is alert and oriented to person, place, and time. ASSESSMENT/PLAN: 1. Bacterial sinusitis - ICD9: 473.9, 041.9, ICD10: J32.9, B96.89 Patient diagnosed with bacterial sinusitis. Day 7 of symptoms. We discussed this still could be viral however this is patient's second visit. Safety net antibiotic sent to pharmacy. We will try supportive therapies over the next 48 hours. If symptoms or not improving will start doxycycline. Follow-up with PCP 3 to 5 days. Patient was educated on supportive therapies. Patient was instructed to immediately proceed to emergency room for any new, worsening, or symptoms lasting longer than anticipated. The patient's clinical presentation is otherwise unremarkable at this time. Based on exam and clinical finding, the patient is stable for discharge. Plan of care was discussed with patient. Patient verbalizes understanding and agrees to plan of care. This note was generated using [employer] software. It may contain errors in wording, punctuation, or spelling. Rajan Rosario [email or web address].CRISSY documented in this encounter [facility] Progress note 08-11-2022 Note Date & Type Note Facility 08-11-2022 Note HNO ID: [id number] Author: YANCI Hutchins Service: ? Author Type: Physician Statistical Programmer Type: Progress Notes Filed: 08/11/2022 12:06 PM Note Text: This note was created using [employer]. Subjective Mariola Dc is a 61 year old female. HPI 61-year-old female presents for nasal congestion, sore throat x3 days. Patient states on Tuesday she started getting a lot of nasal congestion nose. She states she had some sinus pressure and sinus headache. She states that yesterday she started getting a sore throat. Her grandson was diagnosed with sinus infection last week, otherwise no sick contacts. She has not done a home COVID test. She has not had any fevers or chills. No vomiting or diarrhea. No cough. No past medical history on file. PAST SURGICAL HISTORY Procedure Laterality Date PAST SURGICAL HISTORY OF 2005 Partial Hysterctomy--cervix gone, but ovaries still there [place] ECTOPIC W/O SALPINGAND/OOPHORECTOMY 1993 Ectopic ALLERGIES Patient has no known allergies. MEDICATIONS triamcinolone acetonide (KENALOG) 0.1 % cream Apply 1 application to affected area three times daily. Apply sparingly to area for rash/itching. (Patient not taking: Reported on 08/11/2022) FAMILY HISTORY Problem Relation Age of Onset Cancer Father of Lung Cancer 1998; smoker Coronary Artery Disease Father [place] at age 56 None Mother Heart Maternal Grandmother CHF Lipids Maternal Grandmother Cancer Paternal Grandmother of Lung cancer; smoker Social History Tobacco Use Smoking status: Former Packs/day: 1.00 Years: 15.00 Pack years: 15.00 Types: Cigarettes Quit date: 11/29/1993 Years since quittin.7 Smokeless tobacco: Never Tobacco comments: Quit in November 1993 Substance Use Topics Alcohol use: No Drug use: No Review of Systems Constitutional: Negative for chills and fever. HENT: Positive for congestion, sinus pressure, sinus pain and sore throat. Negative for ear pain. Respiratory: Negative for cough and shortness of breath. Cardiovascular: Negative for chest pain. Gastrointestinal: Negative for diarrhea and vomiting. Neurological: Positive for headaches. Objective BP 128/72 Pulse 74 Temp 36.9 ?C (98.4 ?F) Resp 16 Wt 76.7 kg (169 lb 3.2 oz) SpO2 96% BMI 27.73 kg/m? Physical Exam Vitals and nursing note reviewed. Constitutional: General: She is not in acute distress. Appearance: Normal appearance. She is not toxic-appearing. HENT: Right Ear: Tympanic membrane and ear canal normal. Left Ear: Tympanic membrane and ear canal normal. Nose: Congestion present. Mouth/Throat: Mouth: Mucous membranes are moist. Pharynx: Uvula midline. Posterior oropharyngeal erythema present. No pharyngeal swelling or oropharyngeal exudate. Tonsils: Tonsillar exudate present. No tonsillar abscesses. 0 on the right. 0 on the left. Comments: No tonsillar swelling. There is posterior oropharyngeal erythema with small exudate on the right tonsil. No PIPELINES MANAGER. Handling secretions. Eyes: Conjunctiva/sclera: Conjunctivae normal. Cardiovascular: Rate and Rhythm: Normal rate and regular rhythm. Pulmonary: Effort: Pulmonary effort is normal. Breath sounds: Normal breath sounds. Lymphadenopathy: Cervical: No cervical adenopathy. Neurological: Mental Status: She is alert. Assessment and Plan ASSESSMENT/PLAN: 1. URI, acute - ICD9: 465.9, ICD10: J06.9 (primary diagnosis) -Declines COVID/flu swab. Out of window for Tamiflu -Symptoms have only been present for 3 days. Discussed likely viral, low suspicion for bacterial sinusitis at this point. No antibiotic indicated. - Discussed viral etiology and rationale for treatment. - Symptomatic treatment with prn analgesia - Supportive care with fluids and rest -Rx Claritin, Flonase OTC 2. Sore throat - ICD9: 462, ICD10: J02.9 - suspect viral - Alere Strep Test negative, no culture pending - Discussed supportive care treatment with fluids, rest and analgesia. Diagnosis and treatment plan were discussed and questions were answered to the patient's satisfaction. Pt acknowledged understanding of concepts and follow up plan. Specific signs and symptoms that would indicate the need for higher level of care were discussed in detail warranting prompt ER evaluation. YANCI Hutchins [facility] Instructions 08-11-2022 Patient Instructions Note Date & Type Note Facility 08-11-2022 Instructions YANCI Hutchins - 08/11/2022 12:03 PM EST Colds According to the National Institutes of Health, Americans suffer more than 1 billion colds a year. Young children get more colds than adults because of their close contact with other children. The average child gets 7-10 colds per year mainly during the winter. Germs also spread more in colder months because people stay indoors and are in closer quarters with each other. What is a cold? A cold is a contagious respiratory infection that is caused by a virus. More than 200 different viruses can cause colds. What are the symptoms of a cold? Runny nose Sneezing Cough Sore throat Headache Nasal congestion Fever may be present, especially in children These symptoms usually occur two to three days after infection and will usually end in seven to 10 days. How are colds spread? Colds are spread from one person to another through direct contact or by inhaling droplets of fluid that contain a cold virus. Cold viruses must reach the mucous membrane, the moist lining of the nostrils and mouth, in order for a person to become infected. Someone who has a cold probably has particles of a cold virus on them. Many surfaces may also have particles of a cold virus on them. If you touch an infected person or surface and then touch your eyes, nose, or mouth, you are more likely to catch a cold. How are colds treated? There is no cure for a cold, but getting enough rest is the best way to make a quick recovery. Several remedies may shorten a cold s duration and help you feel better. Talk with your doctor before taking any medication or giving medication to your child. Iian-ybt-mijeqpd cold medications may relieve the symptoms of a cold. However, the benefits of these medications are minimal. Some of these medications include the following: Acetaminophen relieves the aches and pains of a cold without upsetting the stomach. Aspirin should not be given to children under the age of 18 because of its link to Kris's Syndrome, a disorder that mostly affects children 4 to 12 years old and causes brain damage and . Decongestants relieve nasal congestion. Antihistamines are used to stop a runny nose and sneezing. Cough suppressants may diminish a cough in adults, but these medications have not been found to be beneficial for children. Expectorants loosen mucous so that it can be easily expelled. Drinking plenty of fluids will keep the nose and throat moist and will loosen mucous. Stay away from alcohol and caffeine because they have a drying effect. Antibiotics should not be used to treat a cold. Antibiotics are effective against bacteria only. They will not work on colds (which are caused by viruses) and may cause future infections to be worse and last longer. Many people take supplements and herbal remedies, such as zinc, Vitamin C, and echinacea to treat and prevent colds. These remedies have been studied and their effectiveness has not been verified. Be careful not to take more supplements or herbal remedies than advised because they can cause unwelcome effects such as diarrhea. Tell your doctor if you are taking supplements and herbal remedies. How can you keep from getting a cold? Wash your hands--especially before eating and preparing food, after using the bathroom, after wiping your nose, and after coming in contact with someone who has a cold. Avoid touching your eyes and nose to prevent the spread of viruses from your hands. Avoid contact with those who have a cold. Clean frequently used surfaces (such as doorknobs) with a virus-killing disinfectant. Use hand sanitizers when water is not available. Get enough sleep, eat a healthy diet, and exercise. This will strengthen your immune system and enable you to fight off infections easier. When does a cold require a doctor s care? Contact your doctor if you have any of the following: High fever Chest pain Greenish mucous Ear pain An asthma flare-up Symptoms last longer than 10 days or get worse You may also have a bacterial infection, which can be diagnosed and treated by your doctor. Children with colds should be watched closely, and a doctor should be contacted if children have a high fever, are wheezing, are not eating, are sleepier than usual, cry a lot, or have ear or stomach pain. documented in this encounter [facility] History of Present illness Narrative 08-11-2022 YANCI Hutchins - 08/11/2022 11:53 AM EST Note Date & Type Note Facility 08-11-2022 History of Presen t illness Narrative This note was created using [employer]. Subjective Mariola Dc is a 61 year old female. HPI 61-year-old female presents for nasal congestion, sore throat x3 days. Patient states on Tuesday she started getting a lot of nasal congestion nose. She states she had some sinus pressure and sinus headache. She states that yesterday she started getting a sore throat. Her grandson was diagnosed with sinus infection last week, otherwise no sick contacts. She has not done a home COVID test. She has not had any fevers or chills. No vomiting or diarrhea. No cough. No past medical history on file. PAST SURGICAL HISTORY Procedure Laterality Date PAST SURGICAL HISTORY OF 2005 Partial Hysterctomy--cervix gone, but ovaries still there [place] ECTOPIC W/O SALPING&/OOPHORECTOMY 1993 Ectopic ALLERGIES Patient has no known allergies. MEDICATIONS triamcinolone acetonide (KENALOG) 0.1 % cream Apply 1 application to affected area three times daily. Apply sparingly to area for rash/itching. (Patient not taking: Reported on 08/11/2022) FAMILY HISTORY Problem Relation Age of Onset Cancer Father of Lung Cancer 1998; smoker Coronary Artery Disease Father [place] at age 56 None Mother Heart Maternal Grandmother CHF Lipids Maternal Grandmother Cancer Paternal Grandmother of Lung cancer; smoker Social History Tobacco Use Smoking status: Former Packs/day: 1.00 Years: 15.00 Pack years: 15.00 Types: Cigarettes Quit date: 11/29/1993 Years since quittin.7 Smokeless tobacco: Never Tobacco comments: Quit in November 1993 Substance Use Topics Alcohol use: No Drug use: No Review of Systems Constitutional: Negative for chills and fever. HENT: Positive for congestion, sinus pressure, sinus pain and sore throat. Negative for ear pain. Respiratory: Negative for cough and shortness of breath. Cardiovascular: Negative for chest pain. Gastrointestinal: Negative for diarrhea and vomiting. Neurological: Positive for headaches. Objective BP 128/72 Pulse 74 Temp 36.9 C (98.4 F) Resp 16 Wt 76.7 kg (169 lb 3.2 oz) SpO2 96% BMI 27.73 kg/m Physical Exam Vitals and nursing note reviewed. Constitutional: General: She is not in acute distress. Appearance: Normal appearance. She is not toxic-appearing. HENT: Right Ear: Tympanic membrane and ear canal normal. Left Ear: Tympanic membrane and ear canal normal. Nose: Congestion present. Mouth/Throat: Mouth: Mucous membranes are moist. Pharynx: Uvula midline. Posterior oropharyngeal erythema present. No pharyngeal swelling or oropharyngeal exudate. Tonsils: Tonsillar exudate present. No tonsillar abscesses. 0 on the right. 0 on the left. Comments: No tonsillar swelling. There is posterior oropharyngeal erythema with small exudate on the right tonsil. No PIPELINES MANAGER. Handling secretions. Eyes: Conjunctiva/sclera: Conjunctivae normal. Cardiovascular: Rate and Rhythm: Normal rate and regular rhythm. Pulmonary: Effort: Pulmonary effort is normal. Breath sounds: Normal breath sounds. Lymphadenopathy: Cervical: No cervical adenopathy. Neurological: Mental Status: She is alert. Assessment and Plan ASSESSMENT/PLAN: 1. URI, acute - ICD9: 465.9, ICD10: J06.9 (primary diagnosis) -Declines COVID/flu swab. Out of window for Tamiflu -Symptoms have only been present for 3 days. Discussed likely viral, low suspicion for bacterial sinusitis at this point. No antibiotic indicated. - Discussed viral etiology and rationale for treatment. - Symptomatic treatment with prn analgesia - Supportive care with fluids and rest -Rx Claritin, Flonase OTC 2. Sore throat - ICD9: 462, ICD10: J02.9 - suspect viral - Alere Strep Test negative, no culture pending - Discussed supportive care treatment with fluids, rest and analgesia. Diagnosis and treatment plan were discussed and questions were answered to the patient's satisfaction. Pt acknowledged understanding of concepts and follow up plan. Specific signs and symptoms that would indicate the need for higher level of care were discussed in detail warranting prompt ER evaluation. YANCI Hutchins documented in this encounter [facility] Evaluation note Note Date & Type Note Facility documented in this encounter [facility] Evaluation note Note Date & Type Note Facility documented in this encounter [facility] Evaluation note Note Date & Type Note Facility documented in this encounter [facility] Summary Purpose Family History No Family History Records FoundNo Family History Records Found Advance Directives No Advanced Directives Records FoundNo Advanced Directives Records Found Additional Source Comments Source Comments (unrecognize d section and content) In the event this informatio n is protected by the Federal Confidentiality of Alcohol and Drug Abuse Patient Records regulations: The Federal rules restrict any use of the information to criminally investigate or prosecute any alcohol or drug abuse patient.[facility] event this information is protected by the Federal Confidentiality of Alcohol and Drug Abuse Patient Records regulations: The Federal rules restrict any use of the information to criminally investigate or prosecute any alcohol or drug abuse patient.[facility] the event this information is protected by the Federal Confidentiality of Alcohol and Drug Abuse Patient Records regulations: The Federal rules restrict any use of the information to criminally investigate or prosecute any alcohol or drug abuse patient.[facility] Reason for Visit (unrecogniz ed section and content) Reason Comments Head Congestion ST, ENRIQUEZ, sinus draina ge x1 weekSeen 08/11 for same Reason Comments Nasal Congestion With cough, SOB, diz zy x 2 week Last week tested positive for Covid INFORMATION SOURCE (unrecogn ized section and content) DATE CREATED AUTHOR AUTHOR'S ORGANIZ ATION 09/09/2023 [facility] FOR RECORDS PERTAINING TO PATIENTS WHO ARE OR HAVE BEEN ENROLLED IN A CHEMICAL DEPENDENCY/SUBSTANCEABUSE PROGRAM, SOME INFORMATION MAY BE OMITTED. This clinical summary was aggregated from multiple sources. Caution should be exercised in using it in the provision of clinical care. This summary normalizes information from multiple sources, and as a consequence, information in this document may materially change the coding, format and clinical context of patient data. In addition, data may be omitted in some cases. CLINICAL DECISIONS SHOULD BE BASED ON THE PRIMARY CLINICAL RECORDS. [employer] provides no warranty or guarantee of the accuracy or completeness of information in this document.
== END | disposition home or self-care (01) ==
PROVIDERS: PCP Nurse Practitioner Family; Referring Provider Nurse Practitioner Family; Visit Provider Nurse Practitioner Family
DX: Z00.00 Encounter for general adult medical examination without abnormal findings (principal)
CPT/HCPCS: 93005

== ENCOUNTER → 2023-09-15 | Outpatient (CLI) | payer OTHER, SELFPAY | END | disposition home or self-care (01) | PROVIDERS: PCP Nurse Practitioner Family; Referring Provider Nurse Practitioner Family; Visit Provider Nurse Practitioner Family | DX: R00.2 Palpitations (principal) | CPT/HCPCS: 93225; 93226 ==

== ENCOUNTER → 2023-11-14 | Outpatient (CLI) | payer OTHER, SELFPAY ==
--- NOTE | 2023-11-14 08:30 | BI_ITS ---
MAMMOGRAPHY - BILATERAL SCREENING REASON FOR EXAM: Female, 62 years old. Routine annual screening examination. PERTINENT HISTORY: Non-contributory. TECHNIQUE: Digital bilateral breast esvin (3D mammographic acquisition) in the CC and MLO projections. 2-D mediolateral oblique (MLO) and craniocaudad (CC) views of both breasts were obtained. CAD: Full Field Digital Mammography with Computer Added Detection was performed. COMPARISON: Comparison is made with prior examination dated October 07, 2022 and July 13, 2021. FINDINGS: Breast Composition: There are scattered areas of fibroglandular density. There are no dominant masses or suspicious calcifications. Stable small benign-appearing bilateral axillary lymph nodes. No other significant abnormalities are identified. There has been no significant change since the prior study. BI/SCRN MAMM (CAD)W/ESVIN BILAT IMPRESSION: Stable bilateral screening mammogram. Yearly follow-up mammogram recommended. (A) ASSESSMENT CATEGORY: BIRADS Category 2: Benign. A letter regarding these results will be sent to the patient by the facility within 30 days. Approximately 10% of breast cancers are not detected by mammography. A normal mammogram should not delay biopsy of a clinically suspicious abnormality. [id number] Electronically Signed: Kem Wade MD at 9:21 EDT ,
== END | disposition home or self-care (01) ==
PROVIDERS: PCP Nurse Practitioner Family; Referring Provider Family Medicine; Visit Provider Nurse Practitioner Family
DX: Z12.31 Encounter for screening mammogram for malignant neoplasm of breast (principal)
CPT/HCPCS: 77063; 77067